=== PATIENT | female | born 1970 | race Caucasian/White ===

== ENCOUNTER 2017-05-03 14:19 | Emergency (ER) | payer BC ==
[2017-05-03 14:23] VITALS: RESP 18
[2017-05-03] MEDS ORDERED: ACETAMINOPHEN TAB 500 MG TAB PO STA (14:51)
[2017-05-03] MEDS ORDERED: SODIUM CHLORIDE 0.9% 500 ML IV STA (14:51)
--- NOTE | 2017-05-03 14:56 | ED ---
General Adult HPI - General Chief complaint: Upper Respiratory Infection Stated complaint: SOB/Fatigue Time Seen by Provider: 05/03/17 14:42 Source: patient, family, RN notes reviewed Mode of arrival: wheelchair Limitations: no limitations - History of Present Illness Initial comments: Chief complaint history of present illness is a 46-year-old female with a complaint of productive cough and fever for the past 24 hours. Patient denies headache. She reports she used to be breath because of a cough which causes anterior chest wall discomfort because of his frequency. Nausea no vomiting. - Related Data Previous Rx's Medication Instructions Recorded Azithromycin [Zithromax Z-pack] 250 mg PO DIRECTED #6 tab 05/03/17 Allergies Allergy/AdvReac Type Severity Reaction Status Date / Time latex Allergy Rash/Hives Verified 05/03/17 15:33 Review of Systems ROS Statement: Those systems with pertinent positive or pertinent negative responses have been documented in the HPI. Review of systems no visual acuity changes no headache no stiff neck no sore throat she has a productive cough. Anterior chest wall discomfort with coughing. Feel short of breath. Fever 101.3. No nausea no vomiting no abdominal pain no skin rashes. No neuro deficits. All systems are reviewed Denies any significant past medical problems. Surgeries include right shoulder arthroscopy, uterine ablation and cholecystectomy. Family history significant for cancers and include lung, stomach prostate and ovarian. Patient has ALLERGIES to latex. She does smoke strongly encouraged to stop drink alcohol rarely socially. 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 ROS Other: All systems not noted in ROS Statement are negative. Past Medical History Past Medical History: No Reported History History of Any Multi-Drug Resistant Organisms: None Reported Past Surgical History: Cholecystectomy, Orthopedic Surgery, Uterine Ablation Additional Past Surgical History / Comment(s): uterine ablation Past Psychological History: No Psychological Hx Reported Smoking Status: Current every day smoker Past Alcohol Use History: Occasional Past Drug Use History: None Reported General Exam - General Exam Comments Initial Comments: General: The patient is awake and alert, with a fever 101.3. Complaining of a productive cough and anterior chest wall pain with coughing. Ongoing for 24 hours. Vital signs temperature 101.3 pulse 96 respiratory rate 18 pulse ox 96% room air blood pressure 140/65 Eye: Pupils are equal, round and reactive to light, extra-ocular movements are intact ; there is normal conjunctiva bilaterally. No signs of icterus. Ears, nose, mouth and throat: There are moist mucous membranes and no oral lesions. Neck: The neck is supple, there is no tenderness , no anterior cervical lymphadenopathy. Cardiovascular: There is a regular rate and rhythm. No murmur, rub or gallop is appreciated. Respiratory: Lungs are clear to auscultation, respirations are non-labored, breath sounds are equal. No wheezes, stridor, rales, or rhonchi. Complains of productive cough and chest wall pain which is reproducible with coughing. Gastrointestinal: Soft, non-distended, non-tender abdomen without masses or organomegaly noted. There is no rebound or guarding present. No CVA tenderness. Bowel sounds are unremarkable. Back: There is no tenderness to palpation in the midline. There is no obvious deformity. No rashes noted. No CVA tenderness Musculoskeletal: Normal ROM, no tenderness, There is no pedal edema. There is no calf tenderness or swelling. Sensation intact. Pulses equal bilaterally 2+. Tattoo of a small heart in her right ankle area. Neurological: No neuro deficits noted complained of. Good balance Skin: Skin is warm and dry and no rashes or lesions are noted. Limitations: no limitations Course Vital Signs 05/03/17 05/03/17 05/03/17 14:20 14:47 15:15 Temperature 101.3 F H 101.6 F H Pulse Rate 96 80 Respiratory 18 18 18 Rate Blood Pressure 140/65 157/64 O2 Sat by Pulse 96 98 Oximetry 05/03/17 16:02 Temperature 100.6 F H Pulse Rate 80 Respiratory 18 Rate Blood Pressure 154/51 O2 Sat by Pulse Oximetry EKG Findings - EKG Comments: EKG Findings:: EKG was done and reviewed at 1445 showing normal sinus rhythm with a 60 cycle interference. No acute ST elevation no ectopy no ischemic changes. Rate 85 [place] was 200 QRS 78 QT [address] Sarmiento Medical Decision Making - Medical Decision Making Medical decision making; white count 5.1 hemoglobin 12 hematocrit of 36 with a d -dimer 0.46. Urine clean no signs of infection. Influenza AB reported to be negative. X-ray of the chest was done both AP and lateral views and reviewed by radiologist his impression is there is no focal airspace opacity, pleural effusion, or pneumothorax seen. Cardiac silhouette size within normal limits. Previous distal right clavicular resection changes present. There are overlying cardiac leads. There is bronchial wall thickening. The osseous structures are intact. Impression correlate for reactive airway disease, bronchitis, follow up as indicated. As read by Dr. Morales Patient has a fever diagnosis of bronchitis. Replaced on a Z-Mohsen to be taken as directed. Increase her fluids. Use Tylenol or Motrin for fever aches and pains [id number] cough suppressants. Follow-up with family physician. Obviously stop smoking. - Lab Data Result diagrams: 05/03/17 15:00 Lab Results 05/03/17 05/03/17 05/03/17 Range/Units 15:00 15:00 15:00 WBC 5.1 (3.8-10.6) k/uL RBC 4.28 (3.80-5.40) m/uL Hgb 12.4 (11.4-16.0) gm/dL Hct 36.3 (34.0-46.0) % MCV 84.8 (80.0-100.0) fL MCH 28.9 (25.0-35.0) pg MCHC 34.0 (31.0-37.0) g/dL RDW 13.4 (11.5-15.5) % Plt Count 355 (150-450) k/uL Neutrophils % 70 % Lymphocytes % 20 % Monocytes % 6 % Eosinophils % 0 % Basophils % 1 % Neutrophils # 3.6 (1.3-7.7) k/uL Lymphocytes # 1.0 (1.0-4.8) k/uL Monocytes # 0.3 (0-1.0) k/uL Eosinophils # 0.0 (0-0.7) k/uL Basophils # 0.0 (0-0.2) k/uL D-Dimer 0.46 (<0.60) mg/L FEU Urine Color Urine Appearance (Clear) Urine pH (5.0-8.0) Ur Specific Ronda (1.001-1.035) Urine Protein (Negative) Urine Glucose (UA) (Negative) Urine Ketones (Negative) Urine Blood (Negative) Urine Nitrite (Negative) Urine Bilirubin (Negative) Urine Urobilinogen (<2.0) mg/dL Ur Leukocyte Esterase (Negative) Influenza Type A RNA Not Detected (Not Detectd) Influenza Type B (PCR) Not Detected (Not Detectd) 05/03/17 Range/Units 15:12 WBC (3.8-10.6) k/uL RBC (3.80-5.40) m/uL Hgb (11.4-16.0) gm/dL Hct (34.0-46.0) % MCV (80.0-100.0) fL MCH (25.0-35.0) pg MCHC (31.0-37.0) g/dL RDW (11.5-15.5) % Plt Count (150-450) k/uL Neutrophils % % Lymphocytes % % Monocytes % % Eosinophils % % Basophils % % Neutrophils # (1.3-7.7) k/uL Lymphocytes # (1.0-4.8) k/uL Monocytes # (0-1.0) k/uL Eosinophils # (0-0.7) k/uL Basophils # (0-0.2) k/uL D-Dimer (<0.60) mg/L FEU Urine Color Yellow Urine Appearance Clear (Clear) Urine pH 7.5 (5.0-8.0) Ur Specific Ronda 1.021 (1.001-1.035) Urine Protein Trace H (Negative) Urine Glucose (UA) Negative (Negative) Urine Ketones Negative (Negative) Urine Blood Negative (Negative) Urine Nitrite Negative (Negative) Urine Bilirubin Negative (Negative) Urine Urobilinogen 2.0 (<2.0) mg/dL Ur Leukocyte Esterase Negative (Negative) Influenza Type A RNA (Not Detectd) Influenza Type B (PCR) (Not Detectd) Disposition Clinical Impression: Bronchitis Disposition: HOME SELF-CARE Condition: Stable Instructions: Upper Respiratory Infection (ED), Acute Bronchitis (ED) Additional Instructions: Stop smoking. Increase fluids. Use Tylenol or Motrin for fever and pain. Use [id number] cough suppressants.. Follow-up with your family physician . Take azithromycin until complete. Prescriptions: Azithromycin [Zithromax Z-pack] 250 mg PO DIRECTED #6 tab Referrals: Brad Grijalva MD [Primary Care Provider] - 1-2 days Time of Disposition: 16:21
[2017-05-03 15:13] LABS: Basophils % (A) 1 %; CH 28.8; CHCM 34.1; Eosinophils % (A) 0 %; HCT 36.3 % (34.0-46.0); HGB 12.4 gm/dL (11.4-16.0); Luc # (Auto) 0.15; Luc % (Auto) 3; Lymphocytes % (A) 20 %; MCH 28.9 pg (25.0-35.0); MCV 84.8 fL (80.0-100.0); Mean Platelet Volume 7.3; Monocytes # (A) 0.3 k/uL (0-1.0); Monocytes % (A) 6 %; Neutrophils # (A) 3.6 k/uL (1.3-7.7); Neutrophils % (A) 70 %; RBC 4.28 m/uL (3.80-5.40); RDW 13.4 % (11.5-15.5); WBC 5.1 k/uL (3.8-10.6); WBC (Perox) 5.43
[2017-05-03 15:16] VITALS: PULSE 80
[2017-05-03 15:20] LABS: Appearance,Urine Clear (Clear); Bilirubin,Urine Negative (Negative); Glucose,Urine (UA) Negative (Negative); Ketones,Urine Negative (Negative); Leukocyte Esterase,Urine Negative (Negative); Nitrite,Urine Negative (Negative); PH, Urine 7.5 (5.0-8.0); Protein,Urine Trace (Negative); Specific Gravity,Urine 1.021 (1.001-1.035); UA Billing (MACRO vs. MICRO) CHEM
--- NOTE | 2017-05-03 15:44 | XR ---
EXAMINATION TYPE: XR chest 2V DATE OF EXAM: 05/03/2017 COMPARISON: NONE HISTORY: Cough and congestion TECHNIQUE: Frontal and lateral views of the chest are obtained. FINDINGS: There is no focal air space opacity, pleural effusion, or pneumothorax seen. The cardiac silhouette size is within normal limits. Previous distal right clavicular resection change is prese nt. There are overlying cardiac leads. There is bronchial wall thickening. The osseous structures are intact. IMPRESSION: Correlate for reactive airways disease, bronchitis, follow-up as indicated.
[2017-05-03 16:03] VITALS: BP 154/51; TEMP 100.6
== END 2017-05-03 16:36 | disposition home or self-care (01) ==
LOC: EC 14:19
DX: J40 Bronchitis, not specified as acute or chronic (principal); F17.200 Nicotine dependence, unspecified, uncomplicated; Z91.040 Latex allergy status
CPT/HCPCS: 36415; 71020; 81003; 85025; 85379; 87086; 87502; 93005; 96360; 99284

== ENCOUNTER 2017-05-07 22:46 | Emergency (ER) | payer BC ==
[2017-05-07 22:54] VITALS: RESP 18
[2017-05-07] MEDS ORDERED: ACETAMINOPHEN TAB 325 MG TAB PO STA (23:30)
[2017-05-07] MEDS: SODIUM CHLORIDE 0.9% 500 ML IV SCH (23:50)
[2017-05-08 00:04] LABS: Aty Lym Flag Slight; CH 28.8; HCT 37.3 % (34.0-46.0); HDW 2.34; HGB 12.6 gm/dL (11.4-16.0); MCH 28.7 pg (25.0-35.0); MCHC 33.8 g/dL (31.0-37.0); Mean Platelet Volume 7.3; RBC 4.39 m/uL (3.80-5.40); RDW 13.1 % (11.5-15.5); WBC 14.2 k/uL (3.8-10.6); WBC (Perox) 14.15
[2017-05-08 00:14] LABS: ALT 36 U/L (9-52); AST 20 U/L (14-36); Alkaline Phosphatase 66 U/L (38-126); Anion Gap 12 mmol/L; Blood Urea Nitrogen 16 mg/dL (7-17); Calcium 8.8 mg/dL (8.4-10.2); Carbon Dioxide 20 mmol/L (22-30); Chloride 103 mmol/L (98-107); Glucose 110 mg/dL (74-99); Non-African American GFR(MDRD) >60 (>60 ml/min/1.73 sqM); Potassium 4.5 mmol/L (3.5-5.1); Sodium 135 mmol/L (137-145); Total Bilirubin 0.3 mg/dL (0.2-1.3); Total Protein 7.1 g/dL (6.3-8.2)
[2017-05-08 00:18] LABS: INR 1.1 (<1.2); Partial Thromboplastin Time 26.1 sec (22.0-30.0); Prothrombin Time 10.6 sec (9.0-12.0)
[2017-05-08 01:01] LABS: Add Differential Manual Differential
[2017-05-08 01:05] LABS: Nucleated Red Blood Cells 0 /100 WBC (0-0); Total Cells Counted 100
--- NOTE | 2017-05-08 01:05 | ED ---
Fever HPI - General Chief Complaint: Fever Stated Complaint: Fever Time Seen by Provider: 05/07/17 22:55 Source: patient Mode of arrival: ambulatory Limitations: no limitations - History of Present Illness Initial Comments: This patient is a 46-year-old woman who presents to be evaluated for fever. She states that this has been going on nearly one week. She was seen here on May 03 for fever as well, diagnosed with bronchitis and given a course of azithromycin which she finished yesterday. She states that the fever has persisted. She does continue to take Tylenol which helps relieve the fever but it recurs. The patient states that when the fever initially developed she was also having cough and some chest congestion. The cough and congestion have resolved and patient states that now she is only having fever. MD Complaint: fever -: days(s) Temperature Source: oral Context: recent antibiotic use Associated Symptoms: denies other symptoms Treatments Prior to Arrival: Acetaminophen, antibiotics - Related Data Home Medications Medication Instructions Recorded Confirmed Acetaminophen Tab [Tylenol Tab] 1,000 mg PO TID PRN 05/07/17 05/07/17 Azithromycin [Zithromax Z-pack] See Taper PO DAILY 05/07/17 05/07/17 Previous Rx's Medication Instructions Recorded Amoxicillin/Potassium Clav 1 tab PO Q12HR #14 tab 05/08/17 [Augmentin 875-125 Tablet] Ondansetron Odt [Zofran ODT] 4 mg PO Q8HR PRN #10 tab 05/08/17 Allergies Allergy/AdvReac Type Severity Reaction Status Date / Time adhesive tape Allergy Rash/Hives Verified 05/07/17 23:05 Review of Systems ROS Statement: Those systems with pertinent positive or pertinent negative responses have been documented in the HPI. ROS Other: All systems not noted in ROS Statement are negative. Constitutional: Reports: fever, chills. Denies: weakness ENT: Denies: ear pain, throat pain, congestion Respiratory: Denies: cough, dyspnea, wheezes, hemoptysis Cardiovascular: Denies: chest pain, syncope Gastrointestinal: Denies: abdominal pain, vomiting, diarrhea Genitourinary: Denies: dysuria, frequency, hematuria Musculoskeletal: Denies: back pain Skin: Denies: rash Neurological: Denies: headache, weakness, numbness Past Medical History Past Medical History: No Reported History History of Any Multi-Drug Resistant Organisms: None Reported Past Surgical History: Cholecystectomy, Orthopedic Surgery, Uterine Ablation Additional Past Surgical History / Comment(s): uterine ablation Past Psychological History: No Psychological Hx Reported Smoking Status: Current every day smoker Past Alcohol Use History: Occasional Past Drug Use History: None Reported General Exam Limitations: no limitations General appearance: alert, in no apparent distress Head exam: Present: atraumatic, normocephalic Eye exam: Present: normal appearance. Absent: scleral icterus, conjunctival injection ENT exam: Present: normal oropharynx, TM's normal bilaterally Neck exam: Present: full ROM. Absent: meningismus Respiratory exam: Present: normal lung sounds bilaterally. Absent: respiratory distress, wheezes, rales, rhonchi, stridor Cardiovascular Exam: Present: regular rate, normal rhythm, systolic murmur ( There is a grade 1/6 systolic ejection murmur). Absent: diastolic murmur, rubs , gallop GI/Abdominal exam: Present: soft. Absent: distended, tenderness, guarding, rebound Extremities exam: Present: normal inspection, normal capillary refill. Absent: pedal edema, calf tenderness Back exam: Present: normal inspection. Absent: CVA tenderness (R), CVA tenderness (L) Skin exam: Present: warm, dry, intact, normal color. Absent: rash Course Vital Signs 05/07/17 05/07/17 05/08/17 22:49 23:15 00:54 Temperature 102.2 F H 103.4 F H 102.2 F H Pulse Rate 98 Respiratory 18 Rate Blood Pressure 141/85 O2 Sat by Pulse 96 Oximetry Medical Decision Making - Medical Decision Making Patient did refuse a number of tests here in emergency department and also antipyretics. Following the lab studies which did show leukocytosis and some toxic granulation , patient is given dose of Rocephin and will be given course of Augmentin to complete. She is feeling better here and would like to go home. Blood culture is pending. Discussed appropriate follow-up and return parameters as well. - Lab Data Result diagrams: 05/07/17 23:45 05/07/17 23:45 Lab Results 05/07/17 05/07/17 05/07/17 Range/Units 23:45 23:45 23:45 WBC 14.2 H (3.8-10.6) k/uL RBC 4.39 (3.80-5.40) m/uL Hgb 12.6 (11.4-16.0) gm/dL Hct 37.3 (34.0-46.0) % MCV 85.0 (80.0-100.0) fL MCH 28.7 (25.0-35.0) pg MCHC 33.8 (31.0-37.0) g/dL RDW 13.1 (11.5-15.5) % Plt Count 413 (150-450) k/uL Neutrophils % (Manual) 42.0 % Band Neutrophils % 4.0 % Lymphocytes % (Manual) 50.0 % Monocytes % (Manual) 4.0 % Neutrophils # (Manual) 6.5 (1.3-7.7) k/uL Lymphocytes # (Manual) 7.1 H (1.0-4.8) k/uL Monocytes # (Manual) 0.6 (0-1.0) k/uL Nucleated RBCs 0 (0-0) /100 WBC Manual Slide Review Performed Toxic Vacuolation Present Large Platelets Present Anisocytosis (manual) Present PT (9.0-12.0) sec INR (<1.2) APTT (22.0-30.0) sec Sodium 135 L (137-145) mmol/L Potassium 4.5 (3.5-5.1) mmol/L Chloride 103 (98-107) mmol/L Carbon Dioxide 20 L (22-30) mmol/L Anion Gap 12 mmol/L BUN 16 (7-17) mg/dL Creatinine 0.70 (0.52-1.04) mg/dL Est GFR (MDRD) Af Amer >60 (>60 ml/min/1.73 sqM) Est GFR (MDRD) Non-Af >60 (>60 ml/min/1.73 sqM) Glucose 110 H (74-99) mg/dL Plasma Lactic Acid Jamar 1.3 (0.7-2.0) mmol/L Calcium 8.8 (8.4-10.2) mg/dL Total Bilirubin 0.3 (0.2-1.3) mg/dL AST 20 (14-36) U/L ALT 36 (9-52) U/L Alkaline Phosphatase 66 (38-126) U/L Total Protein 7.1 (6.3-8.2) g/dL Albumin 3.6 (3.5-5.0) g/dL 05/07/17 Range/Units 23:45 WBC (3.8-10.6) k/uL RBC (3.80-5.40) m/uL Hgb (11.4-16.0) gm/dL Hct (34.0-46.0) % MCV (80.0-100.0) fL MCH (25.0-35.0) pg MCHC (31.0-37.0) g/dL RDW (11.5-15.5) % Plt Count (150-450) k/uL Neutrophils % (Manual) % Band Neutrophils % % Lymphocytes % (Manual) % Monocytes % (Manual) % Neutrophils # (Manual) (1.3-7.7) k/uL Lymphocytes # (Manual) (1.0-4.8) k/uL Monocytes # (Manual) (0-1.0) k/uL Nucleated RBCs (0-0) /100 WBC Manual Slide Review Toxic Vacuolation Large Platelets Anisocytosis (manual) PT 10.6 (9.0-12.0) sec INR 1.1 (<1.2) APTT 26.1 (22.0-30.0) sec Sodium (137-145) mmol/L Potassium (3.5-5.1) mmol/L Chloride (98-107) mmol/L Carbon Dioxide (22-30) mmol/L Anion Gap mmol/L BUN (7-17) mg/dL Creatinine (0.52-1.04) mg/dL Est GFR (MDRD) Af Amer (>60 ml/min/1.73 sqM) Est GFR (MDRD) Non-Af (>60 ml/min/1.73 sqM) Glucose (74-99) mg/dL Plasma Lactic Acid Jamar (0.7-2.0) mmol/L Calcium (8.4-10.2) mg/dL Total Bilirubin (0.2-1.3) mg/dL AST (14-36) U/L ALT (9-52) U/L Alkaline Phosphatase (38-126) U/L Total Protein (6.3-8.2) g/dL Albumin (3.5-5.0) g/dL Disposition Clinical Impression: Bronchitis, Fever Disposition: HOME SELF-CARE Condition: Fair Instructions: Fever in Adults (ED), Acute Bronchitis (ED) Prescriptions: Amoxicillin/Potassium Clav [Augmentin 875-125 Tablet] 1 tab PO Q12HR #14 tab Ondansetron Odt [Zofran ODT] 4 mg PO Q8HR PRN #10 tab PRN Reason: Nausea Referrals: Brad Grijalva MD [Primary Care Provider] - 1-2 days
[2017-05-08 01:09] LABS: Large Platelets Present
[2017-05-08 01:24] LABS: Manual Review Performed; Toxic Vacuolation Present
[2017-05-08] MEDS: SODIUM CHLORIDE 0.9% 500 ML IV SCH (02:05)
[2017-05-08] MEDS ORDERED: ONDANSETRON 4 MG/2 ML VIAL IVP STA (02:18)
[2017-05-08 02:48] VITALS: BP 136/68; PULSE 78; TEMP 102
== END 2017-05-08 02:49 | disposition home or self-care (01) ==
LOC: EC 22:46
DX: J40 Bronchitis, not specified as acute or chronic (principal); F17.200 Nicotine dependence, unspecified, uncomplicated; Z91.048 Other nonmedicinal substance allergy status
CPT/HCPCS: 99283; 96365; 96375; 96361; 36415; 93005; 80053; 83605; 85025; 85610; 85730; 87040; J2405; J0696

== ENCOUNTER 2017-05-08 11:05 | Inpatient (IN) | payer BC ==
[2017-05-08] MEDS ORDERED: SODIUM CHLORIDE 0.9% 1,000 ML IV STA (11:41)
[2017-05-08] MEDS ORDERED: PIPERACILLIN-TAZOBACTAM 3.375 GM in DEXTROSE/WATER 1 50ML.BAG IVPB STA (11:41)
[2017-05-08] MEDS ORDERED: ACETAMINOPHEN TAB 500 MG TAB PO STA (11:41)
[2017-05-08 12:33] LABS: Appearance,Urine Clear (Clear); Bilirubin,Urine Negative (Negative); Glucose,Urine (UA) Negative (Negative); Ketones,Urine Negative (Negative); Leukocyte Esterase,Urine Negative (Negative); Nitrite,Urine Negative (Negative); PH, Urine 5.5 (5.0-8.0); Protein,Urine Negative (Negative); Specific Gravity,Urine 1.014 (1.001-1.035); UA Billing (MACRO vs. MICRO) CHEM; Urobilinogen,Urine <2.0 mg/dL (<2.0)
--- NOTE | 2017-05-08 12:48 | CT ---
EXAMINATION TYPE: CT brain wo con DATE OF EXAM: 05/08/2017 COMPARISON: NONE HISTORY: Dizziness, fever for [address] DLP: 1036 mGycm. Automated Exposure Control for Dose Reduction was Utilized. TECHNIQUE: CT scan of the head is performed without contrast. FINDINGS: There is no acute intracranial hemorrhage, mass effect, or midline shift identified. The ventricles and sulci are within normal limits in size. The globes are intact and the visualized sin uses are clear. Soft tissue density in bilateral external auditory canals is felt to cerumen. No mathieu picious opacification of mastoid air cells is seen. IMPRESSION: No acute intracranial hemorrhage, mass effect, or midline shift is seen. No significant finding is seen to account for patient's symptoms.
--- NOTE | 2017-05-08 12:49 | XR ---
EXAMINATION TYPE: XR chest 2V DATE OF EXAM: 05/08/2017 COMPARISON: Chest x-ray May 03, 2017 HISTORY: Pneumonia per order. TECHNIQUE: Frontal and lateral views of the chest are obtained. FINDINGS: There is no focal air space opacity, pleural effusion, or pneumothorax seen. The cardiac silhouette size is within normal limits. Previous distal right clavicular resection is redemonstrated . IMPRESSION: No suspicious acute infiltrate currently.
[2017-05-08] MEDS: SODIUM CHLORIDE 0.9% 1,000 ML IV STA (14:16)
--- NOTE | 2017-05-08 14:40 | ED ---
Fever HPI - General Chief Complaint: Fever Stated Complaint: dizzy spells Time Seen by Provider: 05/08/17 11:21 Source: patient Mode of arrival: wheelchair Limitations: no limitations - History of Present Illness Initial Comments: 46 years old female has ongoing fever for last 6 days, been to the ER 3 times. I'm she was diagnosed with a chest infection/bronchitis she was given a Z-Mohsen she did feel better) she was quite dizzy and she felt like she can the past she said she passed she felt like pressure in her head and she found herself on the kitchen floor she denies any trauma she takes it she said that she passed. No headaches no neck stiffness no signs of any meningitis no chest pain or shortness of breath no abdominal pain no frequency urgency dysuria no sinus symptoms of TIA or CVA - Related Data Home Medications Medication Instructions Recorded Confirmed Acetaminophen Tab [Tylenol Tab] 1,000 mg PO TID PRN 05/07/17 05/08/17 Ibuprofen [Motrin] 400 mg PO Q6HR PRN 05/08/17 05/08/17 Allergies Allergy/AdvReac Type Severity Reaction Status Date / Time adhesive tape Allergy Rash/Hives Verified 05/08/17 11:23 Review of Systems ROS Statement: Those systems with pertinent positive or pertinent negative responses have been documented in the HPI. ROS Other: All systems not noted in ROS Statement are negative. Past Medical History Past Medical History: No Reported History History of Any Multi-Drug Resistant Organisms: None Reported Past Surgical History: Cholecystectomy, Orthopedic Surgery, Uterine Ablation Additional Past Surgical History / Comment(s): uterine ablation Past Psychological History: No Psychological Hx Reported Smoking Status: Current every day smoker Past Alcohol Use History: Occasional Past Drug Use History: None Reported General Exam - General Exam Comments Initial Comments: General: The patient is awake and alert, in no distress, and does not appear acutely ill. Skin: Skin is warm and dry and no rashes or lesions are noted. Eye: Pupils are equal, round and reactive to light, extra-ocular movements are intact; there is normal conjunctiva bilaterally. Ears, nose, mouth and throat: There are moist mucous membranes and no oral lesions. Neck: The neck is supple, there is no tenderness or JVD. Cardiovascular: There is a regular rate and rhythm. No murmur, rub or gallop is appreciated. Respiratory: To auscultation bilateral, no wheezing no rhonchi no distress respiratory williamson noticed Gastrointestinal: Soft, non-distended, non-tender abdomen without masses or organomegaly noted. There is no rebound or guarding present. Bowel sounds are unremarkable. Back: There is no tenderness to palpation in the midline. There is no obvious deformity. Musculoskeletal: Normal ROM, no tenderness, There is no pedal edema. There is no calf tenderness or swelling. No cords were appreciated. Neurological: CN II-XII intact, Cranial nerves III through XII are intact. There are no obvious motor or sensory deficits. Coordination appears grossly intact. Speech is normal. Psychiatric: Cooperative, appropriate mood & affect, normal judgment. 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 went to the ER round 10:30 white count early-morning was 14.2 INR was 1 CO2 was 20 subjective protein is normal, compressive metabolic panel is normal Medical Decision Making - Lab Data Lab Results 05/08/17 05/08/17 05/08/17 Range/Units 12:10 12:10 12:10 C-Reactive Protein 7.8 (<10.0) mg/L Urine Color Yellow Urine Appearance Clear (Clear) Urine pH 5.5 (5.0-8.0) Ur Specific Wray 1.014 (1.001-1.035) Urine Protein Negative (Negative) Urine Glucose (UA) Negative (Negative) Urine Ketones Negative (Negative) Urine Blood Negative (Negative) Urine Nitrite Negative (Negative) Urine Bilirubin Negative (Negative) Urine Urobilinogen <2.0 (<2.0) mg/dL Ur Leukocyte Esterase Negative (Negative) Group A Strep Rapid Negative (Negative) Disposition Clinical Impression: Fever of unknown origin Disposition: ADMITTED IP TO THIS HOSP Condition: Good Referrals: Brad Grijalva MD [Primary Care Provider] - 1-2 days
[2017-05-08] MEDS ORDERED: ACETAMINOPHEN TAB 325 MG TAB PO PRN (14:41)
[2017-05-08] MEDS ORDERED: IBUPROFEN 400 MG TAB PO PRN (14:41)
[2017-05-08] MEDS ORDERED: MORPHINE SULFATE 4 MG/ML SYRINGE IV PRN (14:41)
[2017-05-08] MEDS ORDERED: NALOXONE 0.4 MG/ML 1 ML VIAL IV PRN (14:41)
[2017-05-08] MEDS ORDERED: ONDANSETRON 4 MG/2 ML VIAL IVP PRN (14:41)
[2017-05-08] MEDS ORDERED: ACETAMINOPHEN TAB 500 MG TAB PO PRN (14:50)
[2017-05-08 16:23] VITALS: BMI 40.3
[2017-05-09] MEDS: PIPERACILLIN-TAZOBACTAM 3.375 GM in DEXTROSE/WATER 1 50ML.BAG IVPB SCH ×3 (00:16→16:55)
[2017-05-09] MEDS: SODIUM CHLORIDE 0.9% 1,000 ML IV STA ×2 (04:09→13:22)
--- NOTE | 2017-05-09 09:32 | P.HPIM ---
History of Present Illness H&P Date: 05/09/17 Chief Complaint: Persistent fever. This is a history of physical and a 46-year-old white female essentially admitted for persistent fever. Over the last 5-7 days, she some bowing fever and actually been to the emergency room at least twice prior to admission. The second admission did show elevation of white blood cell count with lymphocytic shift. She states Motrin and Tylenol have been somewhat ineffective is controlling her temperature. Chest x-ray is pretty wishes some bronchitis, but her last chest x-ray did not show significant issue. Cough initially 5 days ago was present, but she has no significant shortness of breath or sputum production. No GI symptoms. Appetite is nominal. However, she continues to spike temperature of 102 because of this, she has had mays cultures which have not shown anything significant at this time. Review of Systems Constitutional: Reports chills, Reports fever Eyes: denies blurred vision, denies pain Ears, nose, mouth and throat: Denies headache, Denies sore throat Integumentary: Denies pruritus, Denies rash Neurological: Denies numbness, Denies weakness Past Medical History Past Medical History: No Reported History History of Any Multi-Drug Resistant Organisms: None Reported Past Surgical History: Cholecystectomy, Orthopedic Surgery, Uterine Ablation Additional Past Surgical History / Comment(s): uterine ablation Past Anesthesia/Blood Transfusion Reactions: No Reported Reaction Additional Past Anesthesia/Blood Transfusion Reaction / Comment(s): no blood transfusion hx Past Psychological History: No Psychological Hx Reported Smoking Status: Current every day smoker Past Alcohol Use History: Occasional Past Drug Use History: None Reported - Past Family History Mother Family Medical History: No Reported History Medications and Allergies Home Medications Medication Instructions Recorded Confirmed Type Acetaminophen Tab [Tylenol Tab] 1,000 mg PO TID PRN 05/07/17 05/08/17 History Ibuprofen [Motrin] 400 mg PO Q6HR PRN 05/08/17 05/08/17 History Allergies Allergy/AdvReac Type Severity Reaction Status Date / Time adhesive tape Allergy Rash/Hives Verified 05/08/17 11:23 Physical Exam Vitals: Vital Signs Temp Pulse Pulse Resp BP BP BP 05/09/17 00:25 97.7 F 68 20 119/61 05/09/17 00:00 68 20 05/08/17 20:53 97.8 F 64 20 130/53 05/08/17 20:27 18 05/08/17 19:27 100.2 F H 05/08/17 18:26 102.1 F H 05/08/17 17:43 101.2 F H 05/08/17 17:35 137/73 05/08/17 15:54 100.1 F H 76 16 126/62 05/08/17 15:29 99.5 F 77 20 131/61 05/08/17 14:22 99.1 F 80 16 130/67 05/08/17 11:09 100.8 F H 75 16 133/60 Pulse Ox 05/09/17 00:25 95 05/09/17 00:00 05/08/17 20:53 97 05/08/17 20:27 05/08/17 19:27 05/08/17 18:26 05/08/17 17:43 05/08/17 17:35 05/08/17 15:54 99 05/08/17 15:29 98 05/08/17 14:22 95 05/08/17 11:09 97 Intake and Output 05/08/17 05/09/17 05/09/17 22:59 06:59 14:59 Intake Total 200 200 Balance 200 200 Intake: Oral 200 200 Other: Voiding Method Toilet Toilet # Voids 1 1 Weight 110 kg - Constitutional General appearance: no acute distress - EENT Eyes: EOMI - Neck Neck: no lymphadenopathy - Respiratory Respiratory: bilateral: CTA - Cardiovascular Rhythm: regular Heart sounds: normal: S1, S2 - Gastrointestinal General gastrointestinal: soft, no splenomegaly, no tenderness - Neurologic Neurologic: CNII-XII intact Results Labs: Microbiology - Last 24 Hours (Table) 05/08/17 12:10 Urine Culture - Preliminary Urine,Voided 05/08/17 12:10 Group A Strep Throat Culture - Preliminary Throat Thrombosis Risk Factor Assmnt - Choose All That Apply Any of the Below Risk Factors Present?: Yes Each Factor Represents 1 point: Age 41-60 years, Obesity (BMI >25) Other Risk Factors: No Other congenital or acquired thrombophilia - If yes, enter type in comment: No Thrombosis Risk Factor Assessment Total Risk Factor Score: 2 Thrombosis Risk Factor Assessment Level: Low Risk Assessment and Plan (1) Viral syndrome Status: Acute (2) Fever of unknown origin Status: Acute (3) Bronchitis Status: Acute Plan: Continue current regimen of treatment. Check CBC in a.m. Given syncopal episode during this time, we'll go ahead and check echocardiogram with carotid Doppler. Anticipate discharge in a.m. if stabilizing without fever spike and elevation of white blood cell count. Continue Zosyn at this time. Time with Patient: Greater than 30
[2017-05-09 10:11] VITALS: RESP 16
[2017-05-09 11:04] LABS: Aty Lym Flag Slight; CH 28.8; CHCM 33.1; HCT 37.1 % (34.0-46.0); HDW 2.42; HGB 12.2 gm/dL (11.4-16.0); MCH 28.8 pg (25.0-35.0); MCV 87.2 fL (80.0-100.0); Mean Platelet Volume 8.8; RBC 4.25 m/uL (3.80-5.40); RDW 13.1 % (11.5-15.5); WBC 9.4 k/uL (3.8-10.6); WBC (Perox) 10.26
[2017-05-09 11:56] LABS: Add Differential Manual Differential
[2017-05-09 11:57] LABS: Nucleated Red Blood Cells 0 /100 WBC (0-0); Total Cells Counted 100
--- NOTE | 2017-05-09 12:37 | ECHOF ---
Referral Reason:Syncope MEASUREMENTS -------- HEIGHT: 165.1 cm WEIGHT: 109.8 kg BP: RVIDd: 3.0 cm (< 3.3) IVSd: 1.0 cm (0.6 - 1.1) LVIDd: 4.3 cm (3.9 - 5.3) LVPWd: 0.8 cm (0.6 - 1.1) IVSs: 1.2 cm LVIDs: 3.1 cm LVPWs: 1.4 cm LA Diam: 3.2 cm (2.7 - 3.8) LAESV Index (A-L): 28.84 ml/m Ao Diam: 3.0 cm (2.0 - 3.7) AV Cusp: 2.1 cm (1.5 - 2.6) MV EXCURSION: 13.189 mm (> 18.000) MV EF SLOPE: 114 mm/s (70 - 150) EPSS: 0.3 cm MV E Kamari: 1.18 m/s MV DecT: 257 ms MV A Kamari: 0.74 m/s MV E/A Ratio: 1.59 RAP: 5.00 mmHg RVSP: 33.81 mmHg FINDINGS -------- Sinus rhythm. This was a technically adequate study. The left ventricular size is normal. Left ventricular wall thickness is normal. Overall left ventricular systolic function is normal with, an EF between 60 - 65 %. The right ventricle is normal in size. LA is midly dilated 29-33ml/m2. The right atrium is normal in size. The aortic valve is trileaflet and appears structurally normal. Mild mitral annular calcification present. Mild tricuspid regurgitation present. There is borderline pulmonary hypertension. The pulmonic valve was not well visualized. The aortic root size is normal. Normal inferior vena cava with normal inspiratory collapse consistent with estimated right atrial pressure of 5 mmHg. The pericardium is normal. CONCLUSIONS -------- 1. Sinus rhythm. 2. Mild mitral annular calcification present. 3. Mild tricuspid regurgitation present. 4. There is borderline pulmonary hypertension. 5. The pulmonic valve was not well visualized. 6. The aortic root size is normal. 7. Normal inferior vena cava with normal inspiratory collapse consistent with estimated right atrial pressure of 5 mmHg. 8. The pericardium is normal. 9. This was a technically adequate study. 10. The left ventricular size is normal. 11. Left ventricular wall thickness is normal. 12. Overall left ventricular systolic function is normal with, an EF between 60 - 65 %. 13. The right ventricle is normal in size. 14. LA is midly dilated 29-33ml/m2. 15. The right atrium is normal in size. 16. The aortic valve is trileaflet and appears structurally normal. PHYSICIST NUCLEAR: Glory Pedraza RDCS
[2017-05-09 13:04] VITALS: BP 133/75; PULSE 65
[2017-05-09] MEDS ORDERED: DOCUSATE 100 MG CAP PO SCH (15:00)
[2017-05-09] MEDS ORDERED: NICOTINE 14MG/24HR PATCH TRANSDERM STA (18:27)
[2017-05-09 20:56] VITALS: TEMP 98.3
--- NOTE | 2017-05-09 20:59 | P.DS ---
Providers Date of admission: 05/08/17 15:13 Attending physician: Brad Grijalva Primary care physician: Brad Grijalva - Discharge Diagnosis(es) (1) Viral syndrome Current Visit: Yes Status: Acute (2) Fever of unknown origin Current Visit: Yes Status: Acute (3) Bronchitis Current Visit: No Status: Acute Hospital Course: The patient is here essentially for fever of unknown origin. I suspect viral syndrome secondary to lymphocytic involvement of her second CBC done at her second ER visit. She is now asymptomatic. She wishes to go home and she is tolerating diet. Echocardiogram and cultures are negative. Echocardiogram was done because of syncopal episode during this time. She'll follow-up with me in approximately 2 days. Patient Condition at Discharge: Good Plan - Discharge Summary New Discharge Prescriptions: New Amoxicillin/Potassium Clav [Augmentin 875-125 Tablet] 1 tab PO Q12HR #14 tab Continue Acetaminophen Tab [Tylenol] 1,000 mg PO TID PRN PRN Reason: Fever Ibuprofen [Motrin] 400 mg PO Q6HR PRN PRN Reason: Pain Discharge Medication List Acetaminophen Tab [Tylenol] 1,000 mg PO TID PRN 05/07/17 [History] Ibuprofen [Motrin] 400 mg PO Q6HR PRN 05/08/17 [History] Amoxicillin/Potassium Clav [Augmentin 875-125 Tablet] 1 tab PO Q12HR #14 tab 11/24 [Rx] Follow up Appointment(s)/Referral(s): Brad Grijalva MD [Primary Care Provider] - 1-2 days Discharge Disposition: HOME SELF-CARE
== END 2017-05-09 21:27 | disposition home or self-care (01) | DRG 866 ==
LOC: EC 11:05 → 6PED 15:13
PROVIDERS: ADMIT Family Medicine; ATTEND Family Medicine
DX: B34.9 Viral infection, unspecified (principal); R55 Syncope and collapse; J40 Bronchitis, not specified as acute or chronic; E66.9 Obesity, unspecified; R50.9 Fever, unspecified; F17.200 Nicotine dependence, unspecified, uncomplicated; Z87.42 Personal history of other diseases of the female genital tract; Z91.048 Other nonmedicinal substance allergy status; Z90.49 Acquired absence of other specified parts of digestive tract
CPT/HCPCS: 36415; 70450; 71020; 81003; 85025; 86140; 87081; 87086; 87430; 93306; 96365; 96366; 99285

== ENCOUNTER → 2020-04-06 | Outpatient (CLI) | payer BC | END | disposition home or self-care (01) | LOC: LABWHC1 08:20 | PROVIDERS: ATTEND Family Medicine | DX: R19.7 Diarrhea, unspecified (principal); R11.0 Nausea ==

== ENCOUNTER → 2021-03-23 | Outpatient (CLI) | payer BC | END | disposition home or self-care (01) | LOC: LABWHC1 13:39 | PROVIDERS: ATTEND Nurse Practitioner Family | DX: J30.89 Other allergic rhinitis (principal) | CPT/HCPCS: 36415 ==

== ENCOUNTER 2021-06-16 23:59 | Emergency (ER) | payer BC ==
--- NOTE | 2021-06-17 00:55 | ED ---
Arrhythmia/Palpitations HPI - General Chief Complaint: Arrhythmia/Palpitations Stated Complaint: Palpitations Time Seen by Provider: 06/17/21 00:11 Source: patient, family Mode of arrival: ambulatory Limitations: no limitations - History of Present Illness Initial Comments: This patient is a 50-year-old woman who presents to be evaluated for palpitation s. She states she has been having symptoms like this intermittently going back between 2 and 3 weeks. Tonight she was at rest in bed when she noticed that her heart rate became very rapid and was pounding forcefully. When the symptoms did not resolve shortly she came in. She states that the symptoms have resolved while she was here now she feels back at her baseline. The patient denies chest pain, dyspnea, diaphoresis, nausea or vomiting. MD Complaint: "heart racing", palpitations -: week(s) Context: occurred during rest Associated Symptoms: denies other symptoms - Related Data Home Medications Medication Instructions Recorded Confirmed Acetaminophen Tab [Tylenol] 1,000 mg PO TID PRN 05/07/17 05/08/17 Ibuprofen [Motrin] 400 mg PO Q6HR PRN 05/08/17 05/08/17 Previous Rx's Medication Instructions Recorded Amoxicillin/Potassium Clav 1 tab PO Q12HR #14 tab 05/09/17 [Augmentin 875-125 Tablet] Allergies Allergy/AdvReac Type Severity Reaction Status Date / Time adhesive tape Allergy Rash/Hives Verified 06/17/21 00:00 Review of Systems ROS Statement: Those systems with pertinent positive or pertinent negative responses have been documented in the HPI. ROS Other: All systems not noted in ROS Statement are negative. Constitutional: Denies: fever Respiratory: Denies: cough, dyspnea Cardiovascular: Reports: palpitations. Denies: chest pain, orthopnea, edema, syncope Gastrointestinal: Denies: abdominal pain, nausea, vomiting Genitourinary: Denies: dysuria, hematuria Musculoskeletal: Denies: back pain Skin: Denies: rash Neurological: Denies: headache, weakness, numbness Past Medical History Past Medical History: Hyperlipidemia, Thyroid Disorder History of Any Multi-Drug Resistant Organisms: None Reported Past Surgical History: Cholecystectomy, Orthopedic Surgery, Uterine Ablation Additional Past Surgical History / Comment(s): uterine ablation Past Anesthesia/Blood Transfusion Reactions: No Reported Reaction Additional Past Anesthesia/Blood Transfusion Reaction / Comment(s): no blood transfusion hx Past Psychological History: No Psychological Hx Reported Smoking Status: Current every day smoker Past Alcohol Use History: None Reported Past Drug Use History: None Reported - Past Family History Mother Family Medical History: No Reported History General Exam Limitations: no limitations General appearance: alert, in no apparent distress Head exam: Present: atraumatic, normocephalic Eye exam: Present: normal appearance. Absent: scleral icterus, conjunctival injection ENT exam: Present: normal oropharynx Neck exam: Present: normal inspection Respiratory exam: Present: normal lung sounds bilaterally. Absent: respiratory distress, wheezes, rales, rhonchi, stridor Cardiovascular Exam: Present: regular rate, normal rhythm, normal heart sounds. Absent: systolic murmur, diastolic murmur, rubs, gallop GI/Abdominal exam: Present: soft. Absent: distended, tenderness, guarding, rebound, rigid, mass Extremities exam: Present: normal inspection, normal capillary refill. Absent: pedal edema, calf tenderness Back exam: Present: normal inspection. Absent: CVA tenderness (R), CVA tenderness (L) Neurological exam: Present: alert Skin exam: Present: warm, dry, intact, normal color. 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 Arrival ECG does appear to show atrial fibrillation which has resolved spontaneously. At this point the patient does feel well and would like to go home and follow-up. Did offer admission for cardiology consultation area the patient states she will return should the symptoms recur or any new symptoms develop. - Lab Data Result diagrams: 06/17/21 00:35 06/17/21 00:35 Lab Results 06/17/21 06/17/21 06/17/21 Range/Units 00:35 00:35 00:35 WBC 14.5 H (3.8-10.6) k/uL RBC 4.74 (3.80-5.40) m/uL Hgb 14.0 (11.4-16.0) gm/dL Hct 41.5 (34.0-46.0) % MCV 87.6 (80.0-100.0) fL MCH 29.6 (25.0-35.0) pg MCHC 33.8 (31.0-37.0) g/dL RDW 12.7 (11.5-15.5) % Plt Count 429 (150-450) k/uL MPV 7.5 Neutrophils % 47 % Lymphocytes % 42 % Monocytes % 6 % Eosinophils % 2 % Basophils % 1 % Neutrophils # 6.8 (1.3-7.7) k/uL Lymphocytes # 6.0 H (1.0-4.8) k/uL Monocytes # 0.8 (0-1.0) k/uL Eosinophils # 0.3 (0-0.7) k/uL Basophils # 0.1 (0-0.2) k/uL PT 10.1 (9.0-12.0) sec INR 0.9 (<1.2) APTT 26.4 (22.0-30.0) sec Sodium 136 L (137-145) mmol/L Potassium 4.5 (3.5-5.1) mmol/L Chloride 107 (98-107) mmol/L Carbon Dioxide 21 L (22-30) mmol/L Anion Gap 8 mmol/L BUN 18 H (7-17) mg/dL Creatinine 0.68 (0.52-1.04) mg/dL Est GFR (CKD-EPI)AfAm >90 (>60 ml/min/1.73 sqM) Est GFR (CKD-EPI)NonAf >90 (>60 ml/min/1.73 sqM) Glucose 129 H (74-99) mg/dL Calcium 9.1 (8.4-10.2) mg/dL Magnesium 1.8 (1.6-2.3) mg/dL Total Bilirubin 0.3 (0.2-1.3) mg/dL AST 31 (14-36) U/L ALT 27 (4-34) U/L Alkaline Phosphatase 97 (38-126) U/L Troponin I (0.000-0.034) ng/mL Total Protein 7.3 (6.3-8.2) g/dL Albumin 3.8 (3.5-5.0) g/dL TSH 1.110 (0.465-4.680) mIU/L 06/17/21 Range/Units 00:35 WBC (3.8-10.6) k/uL RBC (3.80-5.40) m/uL Hgb (11.4-16.0) gm/dL Hct (34.0-46.0) % MCV (80.0-100.0) fL MCH (25.0-35.0) pg MCHC (31.0-37.0) g/dL RDW (11.5-15.5) % Plt Count (150-450) k/uL MPV Neutrophils % % Lymphocytes % % Monocytes % % Eosinophils % % Basophils % % Neutrophils # (1.3-7.7) k/uL Lymphocytes # (1.0-4.8) k/uL Monocytes # (0-1.0) k/uL Eosinophils # (0-0.7) k/uL Basophils # (0-0.2) k/uL PT (9.0-12.0) sec INR (<1.2) APTT (22.0-30.0) sec Sodium (137-145) mmol/L Potassium (3.5-5.1) mmol/L Chloride (98-107) mmol/L Carbon Dioxide (22-30) mmol/L Anion Gap mmol/L BUN (7-17) mg/dL Creatinine (0.52-1.04) mg/dL Est GFR (CKD-EPI)AfAm (>60 ml/min/1.73 sqM) Est GFR (CKD-EPI)NonAf (>60 ml/min/1.73 sqM) Glucose (74-99) mg/dL Calcium (8.4-10.2) mg/dL Magnesium (1.6-2.3) mg/dL Total Bilirubin (0.2-1.3) mg/dL AST (14-36) U/L ALT (4-34) U/L Alkaline Phosphatase (38-126) U/L Troponin I <0.012 (0.000-0.034) ng/mL Total Protein (6.3-8.2) g/dL Albumin (3.5-5.0) g/dL TSH (0.465-4.680) mIU/L Disposition Clinical Impression: Atrial fibrillation Disposition: HOME SELF-CARE Condition: Good Instructions (If sedation given, give patient instructions): Heart Palpitations (ED) Is patient prescribed a controlled substance at d/c from ED?: No Referrals: Brad Grijalva MD [Primary Care Provider] - 1-2 days Mejia Rabago MD [STAFF PHYSICIAN] - 1-2 days
[2021-06-17 00:59] LABS: Basophils # (A) 0.1 k/uL (0-0.2); Basophils % (A) 1 %; Eosinophils # (A) 0.3 k/uL (0-0.7); Eosinophils % (A) 2 %; HCT 41.5 % (34.0-46.0); Lymphocytes % (A) 42 %; MCH 29.6 pg (25.0-35.0); MCHC 33.8 g/dL (31.0-37.0); MCV 87.6 fL (80.0-100.0); Mean Platelet Volume 7.5; Monocytes # (A) 0.8 k/uL (0-1.0); Monocytes % (A) 6 %; Neutrophils # (A) 6.8 k/uL (1.3-7.7); Neutrophils % (A) 47 %; Platelet Count 429 k/uL (150-450); RBC 4.74 m/uL (3.80-5.40); RDW 12.7 % (11.5-15.5); WBC 14.5 k/uL (3.8-10.6)
[2021-06-17 01:07] LABS: ALT 27 U/L (4-34); AST 31 U/L (14-36); African American GFR (CKD) >90 (>60 ml/min/1.73 sqM); Albumin 3.8 g/dL (3.5-5.0); Alkaline Phosphatase 97 U/L (38-126); Anion Gap 8 mmol/L; Blood Urea Nitrogen 18 mg/dL (7-17); Calcium 9.1 mg/dL (8.4-10.2); Carbon Dioxide 21 mmol/L (22-30); Chloride 107 mmol/L (98-107); Glucose 129 mg/dL (74-99); Magnesium 1.8 mg/dL (1.6-2.3); Non-African American GFR(CKD) >90 (>60 ml/min/1.73 sqM); Potassium 4.5 mmol/L (3.5-5.1); Sodium 136 mmol/L (137-145); Total Bilirubin 0.3 mg/dL (0.2-1.3); Total Protein 7.3 g/dL (6.3-8.2)
--- NOTE | 2021-06-17 01:10 | XR ---
EXAMINATION TYPE: XR chest 2V DATE OF EXAM: 06/17/2021 COMPARISON: 05/08/2017 HISTORY: Dysrhythmia TECHNIQUE: 2 views FINDINGS: Heart and mediastinum are normal. Lungs are clear. Diaphragm is normal. Bony thorax is norm al. There are chest leads. IMPRESSION: Normal chest. No change.
[2021-06-17 01:15] LABS: INR 0.9 (<1.2); Partial Thromboplastin Time 26.4 sec (22.0-30.0); Prothrombin Time 10.1 sec (9.0-12.0)
[2021-06-17 01:20] VITALS: RESP 18
[2021-06-17 02:40] VITALS: BP 115/61; PULSE 68
[2021-06-17 03:18] VITALS: TEMP 98
== END 2021-06-17 03:01 | disposition home or self-care (01) ==
LOC: EC 23:59
DX: I48.91 Unspecified atrial fibrillation (principal); E78.5 Hyperlipidemia, unspecified; F17.200 Nicotine dependence, unspecified, uncomplicated; Z79.1 Long term (current) use of non-steroidal anti-inflammatories (NSAID); Z90.49 Acquired absence of other specified parts of digestive tract
CPT/HCPCS: 36415; 71046; 80053; 83735; 84443; 84484; 85025; 85610; 85730; 93005; 99285

== ENCOUNTER → 2022-08-24 | Day surgery (SDC) | payer BC ==
[~2022-08-24] MED LIST: LACTATED RINGERS 1,000 ML IV SCH
[2022-08-24 09:20] VITALS: BP 145/70; PULSE 65; RESP 16; TEMP 97.8
== END ==
LOC: ORWHC2ENDO 08:45
PROVIDERS: ATTEND Surgery
DX: Z12.11 Encounter for screening for malignant neoplasm of colon (principal)

== ENCOUNTER → 2023-08-10 | Outpatient (CLI) | payer BC ==
[2023-08-10 16:15] LABS: ALT 36 U/L (8-44); AST 27 U/L (13-35); Albumin 4.1 d/dL (3.8-4.9); Albumin/Globulin Ratio 1.32 Ratio (1.60-3.17); Alkaline Phosphatase 77 U/L (41-126); BUN/Creat Ratio 27.29 Ratio (12.00-20.00); Blood Urea Nitrogen 19.1 mg/dL (9.0-27.0); Calcium 9.6 mg/dL (8.7-10.3); Carbon Dioxide 20.8 mmol/L (21.6-31.8); Chloride 104 mmol/L (96-109); Globulin 3.1 d/dL (1.6-3.3); Glucose 123 mg/dL (70-110); Potassium 4.8 mmol/L (3.5-5.5); Sodium 137 mmol/L (135-145); T4, Free (Free Thyroxine) 1.11 ng/dL (0.80-1.80); Total Bilirubin 0.3 mg/dL (0.3-1.2); Total Protein 7.2 d/dL (6.2-8.2)
[2023-08-10 16:41] LABS: Basophils # (A) 0.11 X 10*3/uL (0.00-0.10); Basophils % (A) 1.2 %; Eosinophils # (A) 0.33 X 10*3/uL (0.04-0.35); Eosinophils % (A) 3.7 %; HCT 42.4 % (37.2-46.3); HGB 13.6 d/dL (12.0-15.0); Lymphocytes # (A) 3.75 X 10*3/uL (0.90-5.00); Lymphocytes % (A) 42.2 %; MCH 28.5 pg (27.0-32.0); MCHC 32.1 d/dL (32.0-37.0); MCV 88.9 FL (80.0-97.0); Mean Platelet Volume 10.3 FL (9.5-12.2); Monocytes # (A) 0.58 X 10*3/uL (0.20-1.00); Monocytes % (A) 6.5 %; NRBC Per 100 WBC 0 X 10*3/uL (0.00-0.01); Neutrophils # (A) 4.09 X 10*3/uL (1.80-7.70); Neutrophils % (A) 46.2 %; Platelet Count 455 X 10*3/uL (140-440); RBC 4.77 X 10*6/uL (4.10-5.20); RDW 12.5 % (11.5-14.5); WBC 8.88 X 10*3/uL (4.50-10.00)
== END | disposition home or self-care (01) ==
LOC: LABWHC1 09:05
PROVIDERS: ATTEND Family Medicine
DX: Z13.220 Encounter for screening for lipoid disorders (principal); Z13.228 Encounter for screening for other metabolic disorders; J35.1 Hypertrophy of tonsils
CPT/HCPCS: 36415; 80053; 84439; 84443; 85025

== ENCOUNTER → 2024-11-29 | Outpatient (CLI) | payer BC ==
[2024-11-29 13:20] LABS: Basophils # (A) 0.08 X 10*3/uL (0.00-0.10); Basophils % (A) 0.8 %; Eosinophils # (A) 0.35 X 10*3/uL (0.04-0.35); Eosinophils % (A) 3.5 %; HGB 13.3 g/dL (12.0-15.0); Lymphocytes % (A) 41.8 %; MCH 27.4 pg (27.0-32.0); MCHC 31.7 g/dL (32.0-37.0); MCV 86.4 FL (80.0-97.0); Mean Platelet Volume 10.2 FL (9.5-12.2); NRBC Per 100 WBC 0 X 10*3/uL (0.00-0.01); Neutrophils % (A) 47.7 %; Platelet Count 462 X 10*3/uL (140-440); RBC 4.86 X 10*6/uL (4.10-5.20); RDW 12.5 % (11.5-14.5); WBC 10.05 X 10*3/uL (4.50-10.00)
[2024-11-29 13:36] LABS: BUN/Creat Ratio 24.57 Ratio (12.00-20.00); Blood Urea Nitrogen 17.2 mg/dL (9.0-27.0); Chol/HDL Ratio 4.81 Ratio; Glucose 107 mg/dL (70-110); LDL Cholesterol,Calculated 117.3 mg/dL (0.0-131.0)
[2024-11-29 13:37] LABS: ALT 22 U/L (8-44); AST 20 U/L (13-35); Albumin 4.1 g/dL (3.8-4.9); Albumin/Globulin Ratio 1.37 Ratio (1.60-3.17); Alkaline Phosphatase 95 U/L (41-126); Calcium 9.2 mg/dL (8.7-10.3); Carbon Dioxide 24.9 mmol/L (21.6-31.8); Chloride 106 mmol/L (96-109); Potassium 4.7 mmol/L (3.5-5.5); Sodium 140 mmol/L (135-145); T4, Free (Free Thyroxine) 1.61 ng/dL (0.80-1.80); Total Bilirubin 0.3 mg/dL (0.3-1.2); Total Protein 7.1 g/dL (6.2-8.2)
== END | disposition home or self-care (01) ==
LOC: LABWHC1 08:35
DX: E11.65 Type 2 diabetes mellitus with hyperglycemia (principal)
CPT/HCPCS: 36415; 80053; 80061; 84439; 84443; 85025